=== PATIENT | female | born 1985 | race Caucasian/White ===

== ENCOUNTER 2016-09-03 17:24 | Emergency (ER) | payer BC, OTHER ==
[2016-09-03 17:48] VITALS: BP 125/74; PULSE 88; TEMP 98; BMI 24.7
--- NOTE | 2016-09-03 18:33 | PDOC ---
History of Present Illness - General Chief Complaint: Ear Problem Stated Complaint: SINUS INFECTION Time Seen by Provider: 09/03/16 18:15 History Source: Patient Exam Limitations: No Limitations - History of Present Illness Initial Comments: 09/03/16 18:48 My chief complaint: Sinus pressure and bilateral ear pressure with nasal congestion with discharge from nose for last week History of present illness: Patient is a 30-year-old female with no significant medical history here today complaining of frontal and maxillary sinus pressure and pressure at that back up to bilateral ears with decreased ability to hear over this last week. Patient reports that she's had a headache frontal area today currently is a 5 out of 10. Patient reports having greenish discharge from her nose. Patient has tried taking Sudafed [id number] to decrease congestion however this has not alleviated symptoms patient was taking it every 4 hours. Patient reports having a low-grade temp and chills on 08/29/2016. Patient did not have influenza vaccine. Patient's children have been sick with upper respiratory infections. Patient denies any difficulty breathing or swallowing. Patient reports having a postnasal drip. Patient denies nausea vomiting or diarrhea. She denies cough or sore throat. 09/03/16 18:55 Timing/Duration: getting worse Severity: moderate Associated Symptoms: reports: headaches (frontal ), other (nasal congestion with green nasal discharge, post nasal drip ). denies: shortness of breath Past History - Past Medical History Allergies/Adverse Reactions: Allergies Allergy/AdvReac Type Severity Reaction Status Date / Time latex Allergy Verified 09/03/16 17:48 Home Medications: Ambulatory Orders Amoxicillin/Potassium Clav [Augmentin 875-125 Tablet] 1 each PO BID #20 tablet 09/03/16 Fexofenadine/Pseudoephedrine [Marizol-D 24 Hour Tablet] 1 each PO AC #10 tab.er.24h 09/03/16 Fluticasone Prop 0.05% Nasal [Flonase -] 2 spray NS DAILY #1 spray.pump - Psycho/Social/Smoking Cessation Hx Anxiety: No Suicidal Ideation: No Smoking History: Never smoked Have you smoked in the past 12 months: No Information on smoking cessation initiated: No Hx Alcohol Use: No Drug/Substance Use Hx: No Substance Use Type: None Review of Systems - Review of Systems Able to Perform ROS?: Yes Constitutional: No: Symptoms Reported HEENTM: Yes: Ear Pain (pressure b/l ), Nose Congestion (greenish nasal discharge , frontal and maxillary sinus pressure), Hearing Loss (slight b/l), Other (post nasal drip). No: Throat Pain, Throat Swelling Respiratory: No: Symptoms reported Cardiac (ROS): No: Symptoms Reported ABD/GI: No: Symptoms Reported : No: Symptoms Reported Musculoskeletal: No: Symptoms Reported Integumentary: No: Symptoms Reported Neurological: No: Symptoms reported *Physical Exam - Vital Signs Last Vital Signs Temp Pulse Resp BP Pulse Ox 98.0 F 88 18 125/74 100 09/03/16 17:46 09/03/16 17:46 09/03/16 17:46 09/03/16 17:46 09/03/16 17:46 - Physical Exam General Appearance: Yes: Appropriately Dressed HEENT: positive: TMs Normal, Nasal Congestion, Sinus Tenderness (frontal, b/l maxillary), Hearing Grossly Normal. negative: Pharyngeal Erythema, Tonsillar Exudate, Tonsillar Erythema, Rhinorrhea Neck: negative: Lymphadenopathy (R), Lymphadenopathy (L) Respiratory/Chest: positive: Lungs Clear, Normal Breath Sounds. negative: Chest Tender, Respiratory Distress Cardiovascular: positive: Regular Rhythm, Regular Rate, S1, S2 Integumentary: positive: Normal Color Neurologic: positive: Alert, Responsive Medical Decision Making - Medical Decision Making 09/03/16 18:51 Patient is a 30-year-old female with no significant medical history here today complaining of frontal and maxillary sinus pressure and pressure at that back up to bilateral ears with decreased ability to hear over this last week. Patient reports that she's had a headache frontal area today currently is a 5 out of 10. Patient reports having greenish discharge from her nose. Patient has tried taking Sudafed [id number] to decrease congestion however this has not alleviated symptoms patient was taking it every 4 hours. Patient reports having a low-grade temp and chills on 08/29/2016. Patient did not have influenza vaccine. Patient's children have been sick with upper respiratory infections. Patient denies any difficulty breathing or swallowing. Patient reports having a postnasal drip. Patient denies nausea vomiting or diarrhea. She denies cough or sore throat. 09/03/16 18:55 sinusitis frontal/maxillary nasal congestion PLAN: urine hcg negative flonase 2 sprays each nostril daily for 10 days marizol D 24 hours daily for 10 days augmentin 875mg/125 mg bid for 10 day 09/03/16 18:59 *DC/Admit/Observation/Transfer Diagnosis at time of Disposition: Sinusitis chronic, frontal, Nasal congestion - Discharge Dispostion Disposition: HOME Condition at time of disposition: Stable - Referrals Referrals: Marcos Terry MD [Staff Physician] - - Patient Instructions Additional Instructions: follow up and throat Dr. Terry if symptoms persist Apply a warm washcloth your face every few hours to help facilitate drainage of your sinuses Return to emergency room if symptoms worsen Patient voiced understanding of discharge instructions and all questions were answered
== END 2016-09-03 19:21 | disposition home or self-care (01) ==
LOC: JERFT 17:24
DX: J32.1 Chronic frontal sinusitis (principal)
CPT/HCPCS: 84703; 99281-25